=== PATIENT | male | born 1940 | race Caucasian/White ===

== ENCOUNTER 2020-06-18 09:28 | Day surgery (SDC) | payer MEDICARE, OTHER ==
[~2020-06-18 09:28] MED LIST: Lactated Ringers 1,000 ML IV SCH
[2020-06-18] MEDS ORDERED: Propofol 200 MG/20 ML SDV ONE ×2 (10:35→10:55)
--- NOTE | 2020-06-18 14:12 | OR ---
DATE OF SURGERY: 06/18/2020. REFERRING PROVIDER: Aurora Soto DO PRE-OPERATIVE DIAGNOSES: History of colon polyps. Last colonoscopy was 7 years ago in [place] and revealed 2 tiny cecal polyps. The patient is status post colon resection back in 2003 for villous adenoma. POST-OPERATIVE DIAGNOSES: 1. Right colon anastomosis site normal in appearance. This is in the area of the cecum. This patient appeared to have 2 separate pouches as well as an ileocolic opening. 2. Somewhat tortuous colon, but otherwise normal in appearance. PROCEDURE: Colonoscopy. SURGEON: Julio César Moreno M.D. ANESTHESIA: Monitored anesthesia care. BOWEL PREP: Good. Erik is a 80-year-old male who was brought to the endoscopy suite after discussing risks and benefits of the procedure. Informed consent was obtained for conscious sedation and colonoscopy with or without biopsy and/or polypectomy. We also discussed possibility of missed lesions. Pre-procedure exam was unremarkable. IV, oxygen, and monitors were placed. The patient was placed in the left lateral decubitus position. Sedation was administered and a digital rectal exam was performed and unremarkable. Prostate is absent. Colonoscope was passed into the rectum and slowly advanced all the way to the cecum. Cecum was viewed and photographed. The patient did appear to have 2 separate pouches as well as an ileocolic opening. These were normal in appearance. It did appear to be a partially visible stitch from previous anastomosis. The colonoscope was slowly withdrawn and the mucosa was closed observed in a direct circumferential manner. The ascending colon otherwise unremarkable. The transverse colon was unremarkable. The descending colon was unremarkable. The sigmoid colon was unremarkable. Retroflexion was performed and rectal mucosa was unremarkable. Scope was removed. The patient tolerated the procedure well. The patient was monitored until that baseline status. Discharge instructions were reviewed and the patient was discharged in good condition. COMPLICATIONS: None. TOTAL TIME: 21 minutes. ESTIMATED BLOOD LOSS: None. RECOMMENDATIONS/FOLLOW-UP: The patient is good for at least the next 5 years and then can decide at that time whether any additional colonoscopies would be indicated. However, the patient likely could be done with colonoscopies given that he would be 85 at that time. I would like to kindly thank Aurora Soto for this referral. DMB: 06/18/2020 11:31:23 MODL: 06/18/2020 12:12:44 /[id number]
== END 2020-06-18 12:10 | disposition home or self-care (01) ==
LOC: VM.SDS 09:28
PROVIDERS: ATTEND Family Medicine
DX: Z12.11 Encounter for screening for malignant neoplasm of colon (principal); E78.5 Hyperlipidemia, unspecified; H61.22 Impacted cerumen, left ear; Z86.010 Personal history of colon polyps; Z98.890 Other specified postprocedural states; Z01.812 Encounter for preprocedural laboratory examination; Z20.828 Contact with and (suspected) exposure to other viral communicable diseases
CPT/HCPCS: G0105; J2704; J7120; U0002; 00812